=== PATIENT | female | born 1945 | race Caucasian/White ===

== ENCOUNTER 2018-08-21 09:07 | Emergency (ER) | payer MEDICARE ==
[2018-08-21 09:26] LABS: BASOPHILS % (AUTO) 0.9 % (0.0-5.0); EOSINOPHILS % (AUTO) 1.3 % (0.0-8.0); HEMATOCRIT 37.5 % (36-48); LYMPHOCYTES % (AUTO) 33.8 % (21.0-51.0); MEAN CORPUSCULAR HEMOGLOBIN 33.1 pg (27.0-33.0); MEAN CORPUSCULAR HGB CONC 34.1 g/dL (32.0-36.0); MEAN CORPUSCULAR VOLUME 97.1 fL (79-99); MONOCYTES % (AUTO) 8.9 % (3.0-13.0); NEUTROPHILS % (AUTO) 55.1 % (40.0-77.0); PLATELET COUNT (AUTO) 456 K/uL (130-400); RED BLOOD CELL COUNT(AUTO) 3.86 MIL/uL (4.00-5.50); RED CELL DISTRIBUTION WIDTH 12.9 % (11.0-15.5); WHITE BLOOD COUNT (AUTO) 7.5 K/uL (4.8-10.8)
[2018-08-21] MEDS ORDERED: KETOROLAC TROMETHAMINE 15MG/ML ONE (09:27)
[2018-08-21 09:31] LABS: CREATININE 1.5 mg/dL (0.5-1.5); POTASSIUM 3.2 mmol/L (3.5-5.1)
[2018-08-21 09:36] LABS: ALBUMIN 4.3 g/dL (3.5-5.0); BILIRUBIN,TOTAL 0.4 mg/dL (0.2-1.0); TOTAL PROTEIN, SERUM 7.9 g/dL (6.0-8.3)
[2018-08-21 09:52] LABS: INR 0.96 (0.85-1.15); PARTIAL THROMBOPLASTIN TIME 30.7 SEC (26.3-35.5); PROTHROMBIN TIME 10.1 SEC (9.6-11.6)
[2018-08-21] MEDS ORDERED: TRAMADOL HCL 50 MG TABLET ONE (10:04)
[2018-08-21] MEDS ORDERED: METHYLPREDNISOLONE SOD SUCC 125MG/2ML VIAL ONE (11:50)
[2018-08-21] MEDS ORDERED: CYCLOBENZAPRINE HCL 10 MG TABLET ONE (11:50)
[2018-08-21 11:54] LABS: APPEARANCE,URINE CLEAR (CLEAR); BILIRUBIN,URINE NEGATIVE (NEGATIVE); COLOR,URINE YELLOW (YELLOW); GLUCOSE, URINE (UA) NEGATIVE (NEGATIVE); KETONES,URINE 5 mg/dL (NEGATIVE); LEUKOCYTE ESTERASE ,URINE MODERATE (NEGATIVE); NITRATE,URINE NEGATIVE (NEGATIVE); OCCULT BLOOD,URINE NEGATIVE (NEGATIVE); PROTEIN,URINE NEGATIVE (NEGATIVE); UROBILINOGEN,URINE 0.2 mg/dL (0.2-1.0)
[2018-08-21 12:38] LABS: RBC,URINE None Seen /HPF (0-1)
[2018-08-21 12:39] LABS: BACTERIA,URINE Moderate /HPF (None Seen)
== END 2018-08-21 13:20 | disposition home or self-care (01) ==
LOC: EDH 09:07
DX: M48.02 Spinal stenosis, cervical region (principal); M62.838 Other muscle spasm; I10 Essential (primary) hypertension; Z88.0 Allergy status to penicillin
CPT/HCPCS: 36415; 71045; 72125; 80053; 81001; 82550; 84484; 85025; 85610; 85730; 93005; 96374; 96375; 99284; J1885; J2930

== ENCOUNTER → 2018-08-27 | Outpatient (CLI) | payer MEDICARE | END | disposition home or self-care (01) | LOC: RAH 15:34 | PROVIDERS: ATTEND Family Medicine | DX: M50.30 Other cervical disc degeneration, unspecified cervical region (principal); M48.02 Spinal stenosis, cervical region; M25.78 Osteophyte, vertebrae | CPT/HCPCS: 72141 ==

== ENCOUNTER → 2018-12-30 | Outpatient (CLI) | payer MEDICARE | END | disposition home or self-care (01) | LOC: RAH 10:44 | PROVIDERS: ATTEND Neuromusculoskeletal Medicine & OMM | DX: M48.54XA Collapsed vertebra, not elsewhere classified, thoracic region, initial encounter for fracture (principal); M25.78 Osteophyte, vertebrae; K44.9 Diaphragmatic hernia without obstruction or gangrene | CPT/HCPCS: 72146 ==

== ENCOUNTER → 2019-02-08 | Outpatient (CLI) | payer MEDICARE ==
[~2019-02-08] VITALS: Ht 149.9 cm; Wt 56.7 kg
[~2019-02-08] MED LIST: CEFAZOLIN SODIUM 1 GM VIAL IVP ONE; LACTATED RINGERS 1000ML 1,000 ML IV ONE; SODIUM CHLORIDE 0.9% 1000ML 1,000 ML IV SCH; TRAM50TA4 PO; VALS1TAB75 PO; VANCOMYCIN 1GM+NS 250ML 250 ML IV ONE
[2019-02-08 10:48] LABS: BASOPHILS % (AUTO) 1.1 % (0.0-5.0); EOSINOPHILS % (AUTO) 1.1 % (0.0-8.0); HEMATOCRIT 37.8 % (36-48); LYMPHOCYTES % (AUTO) 30.2 % (21.0-51.0); MEAN CORPUSCULAR HEMOGLOBIN 32.5 pg (27.0-33.0); MEAN CORPUSCULAR VOLUME 92.7 fL (79-99); MONOCYTES % (AUTO) 7.9 % (3.0-13.0); NEUTROPHILS % (AUTO) 59.7 % (40.0-77.0); NUCLEATED RED BLOOD CELLS 0.1 % (0.0-0.19); PLATELET COUNT (AUTO) 316 K/uL (130-400); RED BLOOD CELL COUNT(AUTO) 4.08 MIL/uL (4.00-5.50); RED CELL DISTRIBUTION WIDTH 12.6 % (11.0-15.5); WHITE BLOOD COUNT (AUTO) 6.5 K/uL (4.8-10.8)
[2019-02-08 10:57] VITALS: BP 138/84
[2019-02-08 10:57] LABS: CREATININE 1.5 mg/dL (0.5-1.5)
[2019-02-08 11:40] VITALS: BP 142/67
--- NOTE | 2019-02-08 12:15 | NUR ---
Dr Gonzales rescheduled pt for tomorrow in am Addendum: 02/08/19 at 1356 by SEBLE CAT RN RN Amended: Links added.
== END ==
LOC: DAH 10:00 → EDSTATUS 02-09 12:00
PROVIDERS: ATTEND Neuromusculoskeletal Medicine & OMM
DX: Z01.818 Encounter for other preprocedural examination (principal); S22.41XG Multiple fractures of ribs, right side, subsequent encounter for fracture with delayed healing; X58.XXXD Exposure to other specified factors, subsequent encounter; Z79.899 Other long term (current) drug therapy; Z88.0 Allergy status to penicillin; Z88.8 Allergy status to other drugs, medicaments and biological substances; Z87.891 Personal history of nicotine dependence; Z82.49 Family history of ischemic heart disease and other diseases of the circulatory system; Z82.3 Family history of stroke
CPT/HCPCS: 36415; 80048; 85025; A4215; A4221; A4222; A4223; A4663; A6260; J3370; J7120

== ENCOUNTER → 2019-02-17 | Outpatient (CLI) | payer MEDICARE ==
[~2019-02-17] MED LIST changes: -CEFAZOLIN SODIUM 1 GM VIAL IVP ONE; -LACTATED RINGERS 1000ML 1,000 ML IV ONE; -SODIUM CHLORIDE 0.9% 1000ML 1,000 ML IV SCH; -VANCOMYCIN 1GM+NS 250ML 250 ML IV ONE
== END | disposition home or self-care (01) ==
LOC: RAH 14:37
PROVIDERS: ATTEND Nurse Practitioner Adult Health
DX: Z12.31 Encounter for screening mammogram for malignant neoplasm of breast (principal)
CPT/HCPCS: 77067

== ENCOUNTER → 2019-10-28 | Outpatient (CLI) | payer MEDICARE ==
[~2019-10-28] MED LIST changes: -VALS1TAB75 PO; +VALS1TAB76 PO
== END | disposition home or self-care (01) ==
LOC: RAH 14:57
PROVIDERS: ATTEND Internal Medicine Nephrology
DX: M48.02 Spinal stenosis, cervical region (principal); M19.042 Primary osteoarthritis, left hand; M19.041 Primary osteoarthritis, right hand
CPT/HCPCS: 72040; 73130